=== PATIENT | male | born 1965 | race Hispanic/Latino ===

== ENCOUNTER 2025-06-03 07:30 | Emergency (ER) | payer BC ==
[~2025-06-03] VITALS: Ht 185.4 cm; Wt 100.0 kg
[2025-06-03] MEDS ORDERED: SPIRONOLACTONE50 MG PO (07:43)
[2025-06-03] MEDS ORDERED: LASIX20 MG PO (07:43)
[2025-06-03 08:03] LABS: BASOPHILS 0.7 % (0.2-1.2); EOSINOPHILS 1.8 % (0.8-7.0); LYMPHOCYTES 11.5 % (21.8-53.1); MCH 22.1 PG (25.7-32.2); MCHC 29.3 g/dL (32.3-36.5); MCV 75.3 fL (79.0-92.2); MONOCYTES 9.0 % (5.3-12.2); NEUTROPHILS 76.6 % (34.0-67.9); RBC 4.58 M/uL (4.63-6.08)
[2025-06-03 08:11] LABS: ALT (SGPT) 23.0 U/L (14-59); AST (SGOT) 24.0 U/L (15-37); GLOMERULAR FILTRATION RATE,EST 97.0 mL/min (>60); PROTEIN, TOTAL 7.7 g/dL (6.4-8.2); UREA NITROGEN 12.0 mg/dL (7-18)
[2025-06-03 08:14] LABS: BLOOD/HGB, URINE NEGATIVE (Negative); KETONE, URINE TRACE (Negative); LEUK ESTERASE, URINE NEGATIVE (negative); NITRITE, URINE POSITIVE (negative)
[2025-06-03 08:31] LABS: EPITHELIAL CELLS, URINE 0 /lpf (0-1+)
[2025-06-03 08:32] LABS: BACTERIA, URINE NONE SEEN /hpf (negative); CASTS, URINE NONE SEEN \\lpf; CRYSTALS, URINE AMORPHOUS PHOSPH 4+ (0-1+); REFLEX CULTURE, URINE No (No)
--- OUTSIDE RECORDS SUMMARY | 2025-06-03 10:30 | XMS ---
PreManage Notification: JAS GOVEA Security Watch Engine Operator Events No recent Security Events currently on file CRITERIA MET - [facility] - 2 Visits in 30 Days CARE PROVIDERS RAJESH ARRIOLA Physician Registered Travel Nurse Current PHONE: [phone] Yanelis has no Care Guidelines for this patient. [facility] VISIT COUNT (12 MO.) [address] TOTAL 3 NOTE: Visits indicate total known visits. ED/UCC VISIT TRACKING (12 MO.) 06/03/2025 07:31 [facility] TYPE: Emergency COMPLAINT: - ABDOMINAL PAIN 05/26/2025 16:40 [facility] OR TYPE: Emergency DIAGNOSES: - Other ascites - Unspecified cirrhosis of liver - sent by 04/15/2025 09:00 [facility] OR TYPE: Emergency DIAGNOSES: - Secondary esophageal varices with bleeding - VOMITING BLOOD INPATIENT VISIT TRACKING (12 MO.) 04/15/2025 09:00 [facility] TYPE: Medical Surgical DIAGNOSES: - Secondary esophageal varices with bleeding [email or web address]
[2025-06-03] MEDS ORDERED: SPIRONOLACTONE100 MG NG (10:58)
[2025-06-03] MEDS ORDERED: FUROSEMIDE40 MG PO (10:58)
[2025-06-03 11:08] VITALS: BP 144/99
== END 2025-06-03 11:08 | disposition home or self-care (01) ==
LOC: ED 07:30
PROVIDERS: Emergency Medicine
DX: K76.6 Portal hypertension (principal); I81 Portal vein thrombosis; K74.60 Unspecified cirrhosis of liver; R18.8 Other ascites
CPT/HCPCS: 36415; 74177; 80053; 81001; 82140; 83690; 85025; 99284-25; Q9967